=== PATIENT | male | born 1980 | race Caucasian/White ===

== ENCOUNTER 2019-05-14 11:52 | Emergency (ER) | payer MEDICAID ==
[~2019-05-14] VITALS: Ht 167.6 cm; Wt 92.5 kg
[2019-05-14 12:07] VITALS: Ht 167.6 cm; Wt 92.5 kg
[2019-05-14 15:00] VITALS: BP 103/53
== END 2019-05-14 15:00 | disposition home or self-care (01) ==
LOC: ED 11:52
DX: J18.9 Pneumonia, unspecified organism (principal); J90 Pleural effusion, not elsewhere classified; R42 Dizziness and giddiness
CPT/HCPCS: 87804; Q0092